=== PATIENT | female | born 1980 | race Caucasian/White ===

== ENCOUNTER 2017-11-03 08:30 | Inpatient (IN) | payer BC ==
[2017-11-03] VITALS (30 sets, daily range): BP systolic 100–138; BP diastolic 55–74; PULSE 47–120; TEMP 98–98.4
[~2017-11-03] VITALS: Ht 170.2 cm; Wt 75.0 kg
[~2017-11-03 08:30] MED LIST: FERROUS SULFAT324 M1 PO; PRENATAL1 TA1 PO
[2017-11-03] MEDS ORDERED: PRENATAL (09:26)
[2017-11-03 09:44] LABS: MEAN CELL VOLUME 93 fl (80.0-100.0); MEAN CORPUSCULAR HGB CONC 33 g/dl (33.0-37.0); MEAN PLATELET VOLUME 10.9 fl (7.4-10.4); PLATELET COUNT 187 K/mm3 (130-400); RED BLOOD COUNT 3.82 M/mm3 (4.10-5.30); REDCELL DISTRIBUTION WIDTH-CV 13.4 % (11.5-14.5)
[2017-11-03 09:49] LABS: HEMATOCRIT 35.4 % (37.0-47.0); HEMOGLOBIN 11.6 g/dl (12.5-16.0); MEAN CORPUSCULAR HEMOGLOBIN 30 pg (27.0-31.0)
[2017-11-03 10:06] LABS: BAND 5 % (0-10); EOSINOPHIL 1 % (0-4); HYPOCHROMIA 1+; LYMPHOCYTE 19 % (20.0-51.0); NEUTROPHILS 68 % (42.0-75.2); PLATELET ESTIMATE NORMAL (NORMAL)
[2017-11-04] VITALS (7 sets, daily range): BP systolic 90–114; BP diastolic 53–70; PULSE 59–83; TEMP 97.4–98.2
[2017-11-04] MEDS ORDERED: IBU800 M1 PO (11:00)
[2017-11-05 07:30] VITALS: BP 110/65; PULSE 57; TEMP 98.1
== END 2017-11-05 11:10 | disposition home or self-care (01) | DRG 775 ==
LOC: LDRO 08:30 → LDR 08:40 → OB 08:40 → LDRO 11-05 11:57
PROVIDERS: Obstetrics & Gynecology
PROC: 10E0XZZ Delivery of Products of Conception, External Approach (ICD-10-PCS; principal; 2017-11-03)
PROC: 0HQ9XZZ Repair Perineum Skin, External Approach (ICD-10-PCS; 2017-11-03)
DX: O99.824 Streptococcus B carrier state complicating childbirth (principal); O70.0 First degree perineal laceration during delivery; Z3A.39 39 weeks gestation of pregnancy; Z37.0 Single live birth
CPT/HCPCS: J0690; J2590; J7120